=== PATIENT | female | born 1965 | race Two or more races ===

== ENCOUNTER → 2016-10-09 | Day surgery (SDC) | payer BC ==
[2016-10-09] VITALS (7 sets, daily range): BP systolic 99–110; BP diastolic 58–72
[~2016-10-09] VITALS: Ht 162.6 cm; Wt 72.6 kg
[~2016-10-09] MED LIST: ADVIL100 MG ORAL; LR 1000ml 1,000 ML IV SCH; LR 1000ml 1,000 ML IVLG SCH; LR 1000ml ONE; Propofol 10mg/ml 20ml IV ONE
--- NOTE | 2016-10-09 08:35 | Short Stay Surgery H&P ---
History of Present Illness History of Present Illness Chief Complaint Screening colonoscopy SHAHID Luna is a 51 year old female who was admitted on for screening colonoscopy Patient History Allergies: Coded Allergies: No Known Allergies (Unverified , 10/08/16) PAST MEDICAL HISTORY: Past Surgeries: Social History: Review of Systems Cardiovascular: Reports: no symptoms Respiratory: Reports: no symptoms Skeletal: Reports: no symptoms Gastrointestinal: Reports: no symptoms Genitourinary: Reports: no symptoms Neurologic: Reports: no symptoms Endocrine: Reports: no symptoms Hematologic: Reports: no symptoms Physical Exam Skin: normal HENT: normal Heart: normal Lungs: normal Abdomen: normal Extremities: normal Genitourinary: normal Plan Plan of Care Total colonoscopy Preop Interventions None. Summary of Findings See the report Final Diagnosis: Attestation Are the patient's medical conditions optimized for surgery? Attestation Response: yes LUCÍA PABLO Oct 09, 2016 08:35
--- NOTE | 2016-10-09 08:36 | Pre-Procedure Note/Attestation ---
Pre-Procedure Note/Attestation Complete Prior to Procedure Planned Procedure: left Procedure Narrative: The endoscopic exam of the total colon/colonoscopy for screening Indications for Procedure Pre-Operative Diagnosis: R/O colon polyp/cancer Attestation I attest that I discussed the nature of the procedure; its benefits; risks and complications; and alternatives (and the risks and benefits of such alternatives ), prior to the procedure, with the patient (or the patient's legal credit representative). I attest that, if there was a reasonable possibility of needing a blood transfusion, the patient (or the patient's legal credit representative) was given the [facility] standardized written summary, pursuant to the Papa Yoel Blood Safety Act ([place] Health and Safety Code # 1645, as amended). I attest that I re-evaluated the patient just prior to the surgery and that there has been no change in the patient's H&P, except as documented below: SAMY,SAID Oct 09, 2016 08:36
--- NOTE | 2016-10-09 08:38 | Pre-Procedure Note/Attestation ---
Pre-Procedure Note/Attestation Complete Prior to Procedure Planned Procedure: left Procedure Narrative: Endoscopic exam of the colon Indications for Procedure Pre-Operative Diagnosis: R/O colon polyp/cancer Attestation I attest that I discussed the nature of the procedure; its benefits; risks and complications; and alternatives (and the risks and benefits of such alternatives ), prior to the procedure, with the patient (or the patient's legal uniforms sales representative). I attest that, if there was a reasonable possibility of needing a blood transfusion, the patient (or the patient's legal uniforms sales representative) was given the [facility] standardized written summary, pursuant to the Papa Yoel Blood Safety Act ([place] Health and Safety Code # 1645, as amended). I attest that I re-evaluated the patient just prior to the surgery and that there has been no change in the patient's H&P, except as documented below: SAMY,SAID Oct 09, 2016 08:38
--- NOTE | 2016-10-09 08:58 | Anethesia Preoperative Eval ---
Anesthesia Pre-op PMH/ROS General Date of Evaluation: Oct 09, 2016 Time of Evaluation: 08:40 Anesthesiologist: darrius ASA Score: ASA 2 Mallampati Score Class I : Soft palate, uvula, fauces, pillars visible Class II: Soft palate, uvula, fauces visible Class III: Soft palate, base of uvula visible Class IV: Only hard plate visible Mallampati Classification: Class II Surgeon: nisha Diagnosis: GERD,screening Surgical Procedure: egd/colonoscopy Anesthesia History: none Allergies: Coded Allergies: No Known Allergies (Unverified , 10/08/16) Past Medical History Gastrointestinal/Genitourinary: Reports: GERD - s/p gastric bypass Anesthesia Pre-op Phys. Exam Physician Exam Last Vital Signs Date Time Temp Pulse Resp B/P Pulse Ox O2 Delivery O2 Flow Rate FiO2 10/09/16 08:39 97.6 54 18 99/65 97 Room Air Airway Exam Mallampati Score: Class II Teeth: intact Anesthesia Pre-op A/P Risk Assessment & Plan Plan: propofol Status Change Before Surgery: Asif Merida MD Oct 09, 2016 08:58
--- NOTE | 2016-10-09 09:00 | Immediate Post-Op Evaluation ---
Immediate Post-Op Evalulation Immediate Post-Op Evalulation Date of Evaluation: Oct 09, 2016 Time of Evaluation: 09:30 IV Fluids: 400 Blood Pressure Systolic: 101 Blood Pressure Diastolic: 60 Pulse Rate: 54 Respiratory Rate: 20 O2 Sat by Pulse Oximetry: 100 Temperature (Fahrenheit): 97.4 Pain Score (1-10): 0 Nausea: No Vomiting: No Complications none Patient Status: awake, patent, none Hydration Status: adequate Asif Espinoza MD Oct 09, 2016 09:00
--- NOTE | 2016-10-09 09:01 | 48 Hour Post Anesthesia Eval ---
Post Anesthesia Evaluation Date of Evaluation: Oct 09, 2016 Time of Evaluation: 10:05 Blood Pressure Systolic: 110 0: 71 Pulse Rate: 53 Respiratory Rate: 13 Temperature (Fahrenheit): 97.8 O2 Sat by Pulse Oximetry: 100 Airway: patent Nausea: No Vomiting: No Pain Intensity: 0 Hydration Status: adequate Cardiopulmonary Status: stable Mental Status/LOC: patient returned to baseline Follow-up Care/Observations: n/a Post-Anesthesia Complications: tolerated well Follow-up care needed: ready to discharge Asif Espinoza MD Oct 09, 2016 09:01
--- NOTE | 2016-10-09 09:20 | Endoscopy Procedure Note ---
Endoscopy Procedure Note Indication for Procedure: Abdominal pains/coloon screening Procedures Performed: EGD - S/P gastric bypass with % cm gastric stump remained tat was biopsied, otherwise normal findings., colonoscopy - Poor colon prep. Highly redundant left colon with divericular lesions. Incidental finding of 1 Cm flat polypoid lesion found in descending colon that was biopsied and totally coagulated by hot biopsy forceps. Specimen: yes Pt Tolerated Procedure Well: Yes Estimated Blood Loss: none Anesthesiologist: Dr. Espinoza Anesthesia: moderate sedation Medication Given: see anesthesia record Implant(s) used?: No 50 yrs or older w/o bx or poly: Yes 10yrs. F/U not recommended: Yes If not recommended, why?: 10 yrs. F/U needed: Yes 18 years or older w/prev. colo: Yes <3yrs. since last colonoscopy: Yes Med reason:<3 yrs.: System Reason:<3 yrs.: Last colonoscopy >= to 3yrs: Yes LUCÍA PABLO Oct 09, 2016 09:20
--- NOTE | 2016-10-09 09:22 | Discharge Instructions ---
Discharge Instructions Discharge Instructions Follow up with: See the doctor in office after 2 weeks. For Congestive Heart Failure Reminder Report to your physician any weight gain of 5 pounds or more in one week. SAMY,SAID Oct 09, 2016 09:22
--- NOTE | 2016-10-09 13:30 | Operative Note - Dictated ---
DATE OF OPERATION: 10/09/2016 SURGEON: Roma Lu M.D. PROCEDURE: Esophagogastroduodenoscopy with biopsy. PREOPERATIVE DIAGNOSES: 1. Abdominal pain. 2. History of gastroesophageal reflux. POSTOPERATIVE DIAGNOSES: Status post gastric bypass for bariatric surgery with the remaining of 5 cm gastric stump, which was biopsied. Otherwise, completely normal upper gastrointestinal endoscopy. MEDICATIONS USED: Per Dr. Espinoza, anesthesiologist. INSTRUMENT: GIF Olympus upper gastrointestinal videoendoscope. DESCRIPTION OF PROCEDURE: The patient after arriving in the endoscopy unit, was told about risks and benefits of the procedure, which she accepted and signed the informed consent. She was then put on the left lateral decubitus position. After adequate IV sedation, the scope was gently passed through the cricopharyngeal area, was lodged into the upper esophagus, gradually advanced towards gastroesophageal junction. The entire length of the esophagus looked normal and there was no any evidence of ulcers, tumors, polyps, stricture, bleeding, etc. The GE junction was seen at the level of 35 cm from the cricopharyngeal area. There was no evidence of Mccoy's. There was however seen evidence of 5 cm stump of priorly a gastric bypass surgery, which looked completely normal. However one random biopsy from this part of the stomach was obtained and subsequently the scope was passed into the intestinal lumen, which was consistent with prior history of bariatric surgery of possible Uzair-en-Y operation, however the rest of the small intestine as far as the scope could be advanced looked completely normal. At this time, the scope was pulled out. The procedure was terminated. The patient tolerated the procedure well. Said Nidia Lu DR: Kaykay JOB#: [id number] CC:
--- NOTE | 2016-10-09 18:15 | Operative Note - Dictated ---
DATE OF OPERATION: 10/09/2016 PREOPERATIVE DIAGNOSIS: Screening colonoscopy. POSTOPERATIVE DIAGNOSES: 1. Poor colon preparation. 2. Diverticulosis of the left colon. 3. Highly redundant left colon. 4. Evidence of flat polypoid lesion over the descending left colon at the level at 70 cm from the anus, which was totally and coagulated with hot biopsy forceps. MEDICATION USED: Per Dr. Espinoza, anesthesiologist. INSTRUMENT: GIF Olympus videocolonoscope. DESCRIPTION OF PROCEDURE: The patient after arriving endoscopy unit, was told about risks and benefits of the procedure, which she accepted and signed the informed consent. At this time, the scope was gradually advanced into the rectum and the retroflexion maneuver, which was applied. The area revealed no particular major hemorrhoids. The rectum itself was also completely normal. At this time, the scope was advanced into highly redundant left colon, which was filled with some formed stools signifying the lack of adequate preparation. However, there was incidentally seen diverticular lesions in the colon which were mostly located over the left colon. After passing the scope through the twisted colon in the left side with maneuvers, finally scope could reach towards the splenic flexure and proximal descending colon. At this point, there was seen a flat-looking polypoid lesion, the surface of which was quite soft and looked benign. It was approximately 1 cm in size. It was grabbed with biopsy forceps and multiple pieces were obtained and subsequently was coagulated with hot biopsy forceps totally. The site of the polypectomy remained to be normal. No bleeding was noted. At this time, the scope was advanced into the transverse colon reaching towards the hepatic flexure and finally was guided into the right colon all the way to the base of the cecum. All these areas remained to be normal. There was no any evidence of colon polyps. At this point, within 7 minutes, the scope was gradually pulled out and re-evaluation of the colon did not reveal any other pathologies, though due to lack of adequate preparation, evidence of small diminutive hyperplastic polyps could not be definitely ruled out. The patient tolerated the procedure well and left the endoscopy room in good condition. Said Nidia Lu DR: MCKENNA JOB#: [id number] CC:
== END | disposition home or self-care (01) ==
LOC: GAS 08:04
DX: Z12.11 Encounter for screening for malignant neoplasm of colon (principal); K63.5 Polyp of colon; K57.30 Diverticulosis of large intestine without perforation or abscess without bleeding; Q43.8 Other specified congenital malformations of intestine; K29.50 Unspecified chronic gastritis without bleeding; B96.81 Helicobacter pylori [H. pylori] as the cause of diseases classified elsewhere; Z98.84 Bariatric surgery status
CPT/HCPCS: 43239; 45384; J2704; J7120; 94003; 94150